=== PATIENT | female | born 1960 | race Caucasian/White ===

== ENCOUNTER 2017-11-30 21:54 | Outpatient (REF) | payer BC, SELFPAY ==
[2017-11-30 22:51] LABS: Anion Gap 8.5 mmol/L (3-11); BUN 23 mg/dL (7-18); CO2 29.5 mmol/L (21.0-32.0); CREATININE 0.77 mg/dL (0.55-1.02); Calcium 9.1 mg/dL (8.5-10.1); Chloride 100 mmol/L (98-107); Glucose 102 mg/dL (70-100); Potassium 4.1 mmol/L (3.5-5.1); Sodium 138 mmol/L (136-145)
[2017-11-30 23:02] LABS: Hemoglobin A1C 5.4 % (4.5-6.2)
[2017-12-02 10:46] LABS: Hepatitis C Ab w Rflx HCV PCR Negative (NEGAT)
== END 2017-11-30 22:14 ==
LOC: NCHCN 21:54
PROVIDERS: PCP Nurse Practitioner Family; Visit Provider Nurse Practitioner Family
DX: R73.01 Impaired fasting glucose (principal); I10 Essential (primary) hypertension; Z00.00 Encounter for general adult medical examination without abnormal findings
CPT/HCPCS: 80048; 86803; 83036

== ENCOUNTER 2018-05-09 15:44 | Outpatient (REF) | payer BC, SELFPAY ==
[2018-05-10 06:47] LABS: TSH 2.94 uIU/mL (0.358-3.74)
== END 2018-05-09 16:04 ==
LOC: NCHCN 15:44
PROVIDERS: PCP Nurse Practitioner Family; Visit Provider Registered Nurse
DX: E03.9 Hypothyroidism, unspecified (principal)
CPT/HCPCS: 84443

== ENCOUNTER 2018-11-08 13:46 | Outpatient (REF) | payer BC, SELFPAY ==
[2018-11-08 22:28] LABS: Anion Gap 8.4 mmol/L (3-11); BUN 17 mg/dL (7-18); CO2 29.6 mmol/L (21.0-32.0); CREATININE 0.82 mg/dL (0.55-1.02); Calcium 8.5 mg/dL (8.5-10.1); Chloride 104 mmol/L (98-107); Glucose 77 mg/dL (70-100); Potassium 4.1 mmol/L (3.5-5.1); Sodium 142 mmol/L (136-145)
== END 2018-11-08 14:06 ==
LOC: NCHCO 13:46
PROVIDERS: PCP Nurse Practitioner Family; Visit Provider Registered Nurse
DX: I10 Essential (primary) hypertension (principal)
CPT/HCPCS: 80048

== ENCOUNTER 2019-07-26 22:50 | Outpatient (REF) | payer BC, SELFPAY ==
[2019-07-26 21:26] LABS: TSH 2.56 uIU/mL (0.36-3.74)
== END 2019-07-26 23:10 ==
LOC: NCHCN 22:50
PROVIDERS: PCP Nurse Practitioner Family; Visit Provider Nurse Practitioner Family
DX: E03.9 Hypothyroidism, unspecified (principal)
CPT/HCPCS: 84443

== ENCOUNTER 2020-06-05 08:56 | Outpatient (REF) | payer BC, SELFPAY ==
--- NOTE | 2020-06-05 08:00 | PAPFT_PTH ---
PATIENT: Frannie Bacon LOC: [facility]#:[id number] AGE/SX: 59/F ROOM: RE06/05/[address]: Antoinette Rivera : 1960 BED: DIS: 06/05/2020 SPEC #: [id number] RECD: 06/05/20 12:50 STATUS: AGATHA REQ #: [id number] THEODORE: 06/05/20 08:[address]: Antoinette Rivera DEPT: [facility] Cytology RECD BY: Aura Noland ENTERED: 06/05/20 12:50 SP TYPE: PAPFT OTHR DR: Darcie Sky Tissues: 1 - CX/ENDOCX FOR PAP SMEARS Procedures: PAP THIN PREP/[facility] Screening HPV DNA PROBE Comments: [id number]
[2020-06-05 14:51] LABS: Anion Gap 6.7 mmol/L (3-11); BUN 17 mg/dL (7-18); CO2 31.3 mmol/L (21.0-32.0); CREATININE 0.8 mg/dL (0.55-1.02); Calcium 8.6 mg/dL (8.5-10.1); Calculated LDL 136 mg/dL (<100); Chloride 105 mmol/L (98-107); Cholesterol 219 mg/dL (<200); Glucose 95 mg/dL (74-106); HDL Cholesterol 59 mg/dL (40-60); Sodium 143 mmol/L (136-145); TSH 5.57 uIU/mL (0.36-3.74); Triglyceride 124 mg/dL (<150)
== END 2020-06-05 08:57 | disposition home or self-care (01) ==
LOC: NCHCN 08:56
PROVIDERS: PCP Nurse Practitioner Family; Visit Provider Registered Nurse
DX: Z00.00 Encounter for general adult medical examination without abnormal findings (principal); E03.9 Hypothyroidism, unspecified; R73.03 Prediabetes; Z12.4 Encounter for screening for malignant neoplasm of cervix; Z11.51 Encounter for screening for human papillomavirus (HPV)
CPT/HCPCS: 80048; 80061; 88142; 84443; 87624

== ENCOUNTER 2020-07-25 16:36 | Outpatient (REF) | payer BC, SELFPAY ==
[2020-07-25 14:23] LABS: TSH 1.03 uIU/mL (0.36-3.74)
== END 2020-07-25 16:37 | disposition home or self-care (01) ==
LOC: NCHCN 16:36
PROVIDERS: PCP Nurse Practitioner Family; Visit Provider Registered Nurse
DX: E03.9 Hypothyroidism, unspecified (principal)
CPT/HCPCS: 84443

== ENCOUNTER 2021-06-09 17:23 | Outpatient (REF) | payer BC, SELFPAY ==
[2021-06-09 14:47] LABS: Anion Gap 5.2 mmol/L (3-11); BUN 18 mg/dL (7-18); CO2 29.8 mmol/L (21.0-32.0); CREATININE 0.8 mg/dL (0.55-1.02); Calcium 8.4 mg/dL (8.5-10.1); Calculated LDL 142 mg/dL (<100); Chloride 104 mmol/L (98-107); Cholesterol 219 mg/dL (<200); Glucose 97 mg/dL (74-106); HDL Cholesterol 64 mg/dL (40-60); Potassium 4.3 mmol/L (3.5-5.1); Sodium 139 mmol/L (136-145); TSH 0.96 uIU/mL (0.36-3.74); Triglyceride 69 mg/dL (<150)
== END 2021-06-09 17:24 | disposition home or self-care (01) ==
LOC: NCHCN 17:23
PROVIDERS: PCP Nurse Practitioner Family; Visit Provider Registered Nurse
DX: Z00.00 Encounter for general adult medical examination without abnormal findings (principal); H81.09 Meniere's disease, unspecified ear; Z13.220 Encounter for screening for lipoid disorders; E03.9 Hypothyroidism, unspecified
CPT/HCPCS: 80048; 80061; 84443

== ENCOUNTER 2021-06-17 16:31 | Outpatient (REF) | payer BC, SELFPAY ==
[2021-06-17 22:30] LABS: Calcium 8.4 mg/dL (8.5-10.1)
[2021-06-19 11:11] LABS: Parathyroid Hormone,Intact 50 pg/mL (19-88)
== END 2021-06-17 16:32 | disposition home or self-care (01) ==
LOC: NCHCN 16:31
PROVIDERS: PCP Nurse Practitioner Family; Visit Provider Registered Nurse
DX: E83.51 Hypocalcemia (principal)
CPT/HCPCS: 82310; 83970

== ENCOUNTER 2021-06-19 14:51 | Outpatient (REF) | payer BC, SELFPAY ==
[2021-06-19 17:05] LABS: Magnesium 2.2 mg/dL (1.8-2.4)
== END 2021-06-19 14:52 | disposition home or self-care (01) ==
LOC: NCHCN 14:51
PROVIDERS: PCP Nurse Practitioner Family; Visit Provider Registered Nurse
DX: E83.51 Hypocalcemia (principal); E03.9 Hypothyroidism, unspecified
CPT/HCPCS: 83735

== ENCOUNTER 2022-01-06 23:51 | Outpatient (REF) | payer BC, SELFPAY ==
[2022-01-06 22:28] LABS: Abs Immature Grans 0.02 10^3/uL (0.0-0.06); Absolute Basophil Count 0.04 10^3/uL (0.0-0.2); Absolute Eosinophil Count 0.24 10^3/uL (0.0-0.7); Absolute Monocyte Count 0.57 10^3/uL (0.1-0.8); Absolute Neutrophil Count 4.13 10^3/uL (1.2-6.7); Basophils % 0.6; Eosinophils % 3.9; HCT 43.6 % (36.0-46.0); HGB 14.2 g/dL (11.2-15.7); Immature Grans % 0.3; Lymphocytes % 19.4; MCH 30.3 pg (27.0-33.0); MCHC 32.6 % (32.0-36.0); MCV 93 fL (80-95); MPV 10.1 fL (8.0-11.0); Monocytes % 9.2; Neutrophils % 66.6; Platelet Count 356 10^3/uL (130-400); RBC 4.69 10^6/uL (3.93-5.22); RDW 12.1 % (11.7-14.6); RDW-SD 41.4 fL
[2022-01-06 23:06] LABS: ALT 28 U/L (14-59); AST 20 U/L (15-37); Albumin 3.9 g/dL (3.4-5.0); Alkaline Phosphatase 98 U/L (46-116); Anion Gap 7.2 mmol/L (3-11); BUN 14 mg/dL (7-18); Bilirubin, Total 0.6 mg/dL (0.2-1.0); CO2 29.8 mmol/L (21.0-32.0); CREATININE 0.8 mg/dL (0.55-1.02); Chloride 100 mmol/L (98-107); Estimated GFR 82.74 (mL/min/1.73m2); Glucose 101 mg/dL (74-106); Potassium 3.7 mmol/L (3.5-5.1); Sodium 137 mmol/L (136-145); Total Protein 7.6 g/dL (6.4-8.2)
[2022-01-06 23:57] LABS: Vitamin D 25 Total 31.9 ng/mL (30-100)
== END 2022-01-06 23:52 | disposition home or self-care (01) ==
LOC: NCHCN 23:51
PROVIDERS: PCP Nurse Practitioner Family; Visit Provider Registered Nurse
DX: E03.9 Hypothyroidism, unspecified (principal); E83.51 Hypocalcemia; E66.8 Other obesity; Z86.39 Personal history of other endocrine, nutritional and metabolic disease
CPT/HCPCS: 80053; 82306; 84443; 85025

== ENCOUNTER 2023-02-22 10:55 | Outpatient (REF) | payer BC, SELFPAY ==
[2023-02-22 14:52] LABS: BUN 14 mg/dL (7-18); CREATININE 0.8 mg/dL (0.55-1.02); Chloride 103 mmol/L (98-107); Estimated GFR 82.23 (mL/min/1.73m2); Glucose 100 mg/dL (74-106); Potassium 3.9 mmol/L (3.5-5.1); Sodium 138 mmol/L (136-145); TSH 0.64 uIU/mL (0.36-3.74)
== END 2023-02-22 10:56 | disposition home or self-care (01) ==
LOC: NCHCN 10:55
PROVIDERS: PCP Nurse Practitioner Family; Visit Provider Family Medicine
DX: E03.9 Hypothyroidism, unspecified (principal); I10 Essential (primary) hypertension
CPT/HCPCS: 80048; 84443

== ENCOUNTER 2023-07-27 15:16 | Outpatient (REF) | payer BC, SELFPAY ==
[2023-07-27 14:21] LABS: TSH 1.88 uIU/Ml (0.36-3.74)
== END 2023-07-27 15:17 | disposition home or self-care (01) ==
LOC: NCHCN 15:16
PROVIDERS: PCP Nurse Practitioner Family; Visit Provider Family Medicine
DX: E03.9 Hypothyroidism, unspecified (principal)
CPT/HCPCS: 84443

== ENCOUNTER 2024-03-26 10:05 | Outpatient (REF) | payer BC, SELFPAY ==
[2024-03-26 14:51] LABS: HCT 44.2 % (36.0-46.0); HGB 14.4 g/dL (11.2-15.7); MCH 30.4 pg (27.0-33.0); MCHC 32.6 % (32.0-36.0); MCV 93 fL (80-95); Platelet Count 268 10^3/uL (130-400); RBC 4.73 10^6/uL (3.93-5.22); RDW 12.2 % (11.7-14.6); RDW-SD 42.5 fL; WBC 5.63 10^3/uL (4.4-10.8)
[2024-03-26 15:19] LABS: Anion Gap 7.9 mmol/L (3-11); BUN 19 mg/dL (7-18); CO2 30.1 mmol/L (21.0-32.0); CREATININE 0.8 mg/dL (0.55-1.02); Calcium 8.8 mg/dL (8.5-10.1); Calculated LDL 143 mg/dL (<100); Chloride 106 mmol/L (98-107); Cholesterol 226 mg/dL (<200); Estimated GFR 81.72 (mL/min/1.73m2); Glucose 99 mg/dL (74-106); HDL Cholesterol 68 mg/dL (40-60); Potassium 4.3 mmol/L (3.5-5.1); Sodium 144 mmol/L (136-145); TSH (W/Ref FT4) 1.28 uIU/mL (0.36-3.74); Triglyceride 79 mg/dL (<150)
== END 2024-03-26 10:06 | disposition home or self-care (01) ==
LOC: NCHCN 10:05
PROVIDERS: PCP Nurse Practitioner Family; Visit Provider Family Medicine
DX: E03.9 Hypothyroidism, unspecified (principal); E83.51 Hypocalcemia; E66.9 Obesity, unspecified; H81.01 Meniere's disease, right ear
CPT/HCPCS: 80048; 80061; 85027; 84443

== ENCOUNTER 2024-04-18 16:03 | Outpatient (REF) | payer BC, SELFPAY ==
--- NOTE | 2024-04-18 13:30 | PAPFT_PTH ---
PATIENT: Frannie Bacon LOC: [facility]#:[id number] AGE/SX: 63/F ROOM: RE04/18/[address]: DAVID: 1960 BED: DIS: 04/18/2024 SPEC #: [id number] RECD: 04/19/24 12:45 STATUS: ALICIALisbeth RELeonardo #: [id number] THEODORE: 04/18/24 13:[address]: Arianne Galeano DEPT: [facility] Cytology RECD BY: Aura Noland ENTERED: 04/19/24 12:46 SP TYPE: PAPFT OTHR DR: Darcie Sky Tissues: 1 - CX/ENDOCX FOR PAP SMEARS Procedures: PAP THIN PREP/[facility] Screening HPV DNA PROBE Comments: [id number] (HPV 16 & 18/45)
== END 2024-04-18 16:04 | disposition home or self-care (01) ==
LOC: NCHCN 16:03
PROVIDERS: PCP Nurse Practitioner Family; Visit Provider Family Medicine
DX: Z11.51 Encounter for screening for human papillomavirus (HPV) (principal); Z01.419 Encounter for gynecological examination (general) (routine) without abnormal findings
CPT/HCPCS: 88142; 87624